=== PATIENT | male | born 1945 | race Caucasian/White ===

== ENCOUNTER → 2017-08-28 13:52 | Outpatient (CLI) | payer OTHER, SELFPAY ==
--- NOTE | 2017-08-28 | DI.ECHO.S_ITS ---
[facility]---------+ [facility] +---------+ : : [address] : [place] : : : : [id number] : : : : Phone: [phone]---------+ Echocardiogram Report + + :Name: GINA PITTMAN Study Date: 08/28/2017 Height: 72 in : :[facility] Weight: 230 lb : : Gender: Male BSA: 2.3 m2 : :: 1945 Age: 71 yrs BP: 124/76 mmHg: :Reason For Study: SOB : : Performed By: Celina Ann : :Referring: UNSPECIFIED : + + Interpretation Summary 1) Normal left ventricular thickness, size, and systolic function (EF 60-65%). 2) Apical inferolateral wall appears hypokinesis. 3) Grossly, normal right ventricular size and function. 3) There is moderate aortic stenosis (mean gradient 24mmHg, valve area 1.2cm2). 4) The right ventricular systolic pressure is estimated at 36 mmHg assuming a right atrial pressure of 8 mm Hg. 5) The ascending aorta is mildly enlarged at 3.9cm. 6) No prior Echo available for comparison. Procedure: A two-dimensional transthoracic echocardiogram with color flow and Doppler was performed. The study quality was technically adequate. There is no prior echocardiogram noted for this patient. The patient was in normal sinus rhythm during the exam. Left Ventricle: The left ventricle is normal in size. There is normal left ventricular wall thickness. The ejection fraction is estimated to be 60-65%. Left ventricular systolic function is normal. Apical inferolateral wall appears hypokinesis. Right Ventricle: The right ventricle grossly appears normal in size with probable normal systolic function. Atria: The left atrium is moderately dilated. The right atrium is mildly dilated. The interatrial septum is intact with no evidence for an atrial septal defect. Mitral Valve: The mitral valve is normal in structure and function. There is trace mitral regurgitation. Aortic Valve: The calculated aortic valve area is 1.2 cm2. The aortic valve area is 1.8 centimeters squared by planimetry. The peak aortic velocity is 3,2 m/sec. The aortic valve mean gradient is 24 mmHg. Severity ratio is 0.29. The aortic valve area indexed to the BSA is 0.50 . There is moderate aortic stenosis. No aortic regurgitation is present. Tricuspid Valve: The tricuspid valve is normal in structure and function. There is a trace or physiologic amount of tricuspid regurgitation. The right ventricular systolic pressure is estimated at 36 mmHg assuming a right atrial pressure of 8 mm Hg. Pulmonic Valve: The pulmonic valve is normal in structure and function. There is trace pulmonic regurgitation. Great Vessels: The aortic root is normal size. The ascending aorta is mildly enlarged. The IVC is dilated (diameter is greater than 2.1 cm) yet it collapses greater than 50% with a sniff. This suggests a right atrial pressure of 8 mm Hg. Pericardium/ Pleura There is no pericardial effusion. There is no pleural effusion. MMode/2D Measurements & Calculations LVIDd: 5.1 cm LVOT diam: 2.2 cm LVIDs: 3.0 cm Ao root diam: 3.7 cm FS: 42.6 % Aortic Jxn: 2.9 cm IVSd: 0.98 cm asc Aorta Diam: 3.9 cm LVPWd: 0.97 cm Ao Arch Diam (Prox Trans): 3.2 cm LV treadwell. diameter/BSA (cm/m^2): 2.3 LV sys. diameter/BSA (cm/m^2): 1.3 LA dimension: 4.3 cm RA long axis: 5.6 cm LA A2 area: 28.4 cm2 RA area: 23.4 cm2 LA A4 area: 26.7 cm2 RA vol: 83.7 ml LA length (vol): 6.2 cm RA : 37.0 ml/m2 LA vol: 103.4 ml IVC diam: 2.2 cm LA vol index: 45.7 ml/m2 RVDd major: 6.3 cm RVD1 (basal): 5.2 cm RVD2 (mid): 4.7 cm ALLAN (plan): 1.8 cm2 TAPSE: 2.6 cm Doppler Measurements & Calculations Ao V2 max: 321.3 cm/sec LVOT Max Amos: 97.4 cm/sec Ao V2 mean: 229.7 cm/sec LV V1 max P.8 mmHg Ao max P.3 mmHg LV V1 VTI: 20.4 cm Ao mean P.5 mmHg ALLAN(I,D): 1.1 cm2 Ao V2 VTI: 71.3 cm ALLAN(V,D): 1.2 cm2 sev ratio: 0.29 ALLAN indexed to BSA (cm^2/m^2): 0.50 MV E max amos: 102.9 cm/sec TR max amos: 264.7 cm/sec MV A max amos: 114.7 cm/sec TR max P.0 mmHg MV E/A: 0.90 PA V2 max: 114.2 cm/sec Med Peak E' Amos: 6.8 cm/sec PA V2 mean: 79.7 cm/sec E/E' med: 15.0 PA mean P.9 mmHg Lat Peak E' Amos: 9.6 cm/sec PA Accel Time: 0.17 sec E/E' lat: 10.7 E/e' average: 12.9 MV dec time: 0.26 sec MV P1/2t: 74.3 msec MV P1/2t max amos: 103.2 cm/sec MVA(P1/2t): 3.0 cm2 Reading Physician:05:20 PM
== END ==
PROVIDERS: PCP Family Medicine; Visit Provider Family Medicine
DX: R06.02 Shortness of breath (principal)
CPT/HCPCS: 93306

== ENCOUNTER → 2022-07-12 15:07 | Outpatient (CLI) | payer MEDICARE, SELFPAY ==
--- NOTE | 2022-07-13 10:20 | DI.NM.S_ITS ---
DATE OF SERVICE: 07/12/2022 PROCEDURE: Exercise treadmill stress test without imaging. ORDERING PROVIDER: Esteban Jacobs MD. GATED STUDY: The patient is a 76-year-old male with exertional dyspnea and moderate aortic stenosis. FINDINGS: 1. The patient was able to exercise for 6 minutes, 1 second on a standard Bunny protocol suggesting fair exercise capacity with an PRACHI of -6%, achieving 6.9 METS. 2. He had a normal heart rate and blood pressure response, achieving a maximum heart rate of 126 bpm (88% of his predicted maximum). His resting blood pressure of 140/98 increased to a maximum of 162/90. 3. He had no chest discomfort or other anginal symptoms. 4. His resting ECG showed sinus rhythm with occasional PVCs and a left anterior fascicular block and LVH with repolarization pattern. There were no significant ST-segment shifts with exercise. He continued to have occasional PVCs, slightly more frequent with stress with rare ventricular couplets, but no other complex ventricular ectopy. IMPRESSION: 1. Normal exercise treadmill test stress test for ischemia. 2. Fair exercise capacity without angina. He had rare PVCss at rest with a slight increase with stress with rare couplets but no other arrhythmias. Krish Porter - ATA/vipul/sonia doc#: [id number]/job#: [id number] dd: 07/12/2022 16:19:00 dt: 07/12/2022 23:16:00 DICTATING MD/COPIES TO: Luis West MD; Esteban Jacobs MD COPIES MNE: WAN;
== END ==
PROVIDERS: PCP Family Medicine; Referring Provider Internal Medicine Cardiovascular Disease; Visit Provider Internal Medicine Cardiovascular Disease
DX: I35.0 Nonrheumatic aortic (valve) stenosis (principal); R06.09 Other forms of dyspnea; I70.0 Atherosclerosis of aorta
CPT/HCPCS: 93017